=== PATIENT | female | born 1980 | race Caucasian/White ===

== ENCOUNTER 2024-09-11 12:50 | Emergency (ER) | payer OTHER, SELFPAY ==
[2024-09-11 12:55] VITALS: BP 144/93; PULSE 83; TEMP 36.9; O2SAT 95; BMI 32.0
[2024-09-11 13:25] LABS: Influenza Virus A Antigen Negative; Influenza Virus B Antigen Negative; Internal Control Within Normal Limits; SARS-CoV-2 Ag NEGATIVE (NEGATIVE)
--- NOTE | 2024-09-11 13:35 | ED.GENADUL1 ---
HPI HPI - General Adult General Chief complaint: Upper Respiratory Infection Stated complaint: SOB DRY COUGH DIARRHEA Time Seen by Provider: 09/11/24 12:59 Source: patient Mode of arrival: walk-in Limitations: no limitations History of Present Illness HPI narrative: Patient comes to the ER with a 2 days history of cough associated with phlegm in addition to generalized body ache and runny nose, the patient has been exposed to her grandkid who has coronavirus Related Data Home Medications ?Medication ?Instructions ?Recorded ?Confirmed losartan 25 mg tablet 25 mg PO DAILY 09/11/24 09/11/24 naproxen 500 mg tablet 500 mg PO BID 09/11/24 09/11/24 sumatriptan succinate 50 mg tablet 50 mg PO Q2H PRN migraine headache 09/11/24 09/11/24 Previous Rx's ?Medication ?Instructions ?Recorded fluticasone propionate 50 1 spray intranasal BID PRN 09/11/24 mcg/actuation nasal congestion #16 grams spray,suspension guaifenesin 600 mg tablet, 600 mg PO BID PRN cough #10 tabs 09/11/24 extended release 12 hr (Mucinex) Allergies Allergy/AdvReac Type Severity Reaction Status Date / Time No Known Drug Allergies Allergy Verified 09/11/24 12:55 Opioid HPI Opioid Management Most Recent Opioid Data: No Data to Display Review of Systems ROS Status of ROS 10 or more systems reviewed and unremarkable except as noted in history and below PFSH PFSH Social History Little interest or pleasure in doing things: not at all Feeling down, depressed, or hopeless: not at all Exam Narrative Exam Narrative: Nurses notes and vital signs reviewed and patient is not hypoxic. General: Well-appearing and in no apparent distress. Skin: Warm, dry, no pallor noted. No rash. Head: Normocephalic, atraumatic. Neck: Supple, non-tender. Eye: Pupils are equal, round and EOMI. No scleral icterus. Ears, Nose, Mouth, and Throat: TM are clear, no nasal mucosal hypertrophy. Oral mucosa is moist, no posterior oropharynx erythema, uvula is mid-line Cardiovascular: Regular Rate and Rhythm without murmur, gallop or rub. Respiratory: No accessory muscle use or respiratory distress. Lungs are clear to auscultation, no wheezing, rales or rhonchi Chest Wall: no tenderness Back: No midline thoracic or lumbar vertebral tenderness. No CVA tenderness Musculoskeletal: normal ROM, no calf or popliteal tenderness, no lower extremity edema/swelling GI: Abdomen is soft, non-distended. Normal bowel sounds. No masses appreciated. No tenderness to palpation. No rebound, guarding, or rigidity noted. Neurological: A&O x4. No cranial nerve dysfunction observed. No truncal ataxia. Moves all extremities. Sensation intact. Psychiatric: Cooperative and interactive. Normal mood and affect. Constitutional Vital Signs, click to edit/add: Last Vital Signs Temp 98.4 F 09/11/24 12:55 Pulse 83 09/11/24 12:55 Resp 20 09/11/24 12:55 BP 144/93 H 09/11/24 12:55 Pulse Ox 95 09/11/24 12:55 Course Vital Signs Vital signs: Vital Signs Temperature 98.4 F 09/11/24 12:55 Pulse Rate 83 09/11/24 12:55 Respiratory Rate 20 09/11/24 12:55 Blood Pressure 144/93 H 09/11/24 12:55 Pulse Oximetry 95 09/11/24 12:55 Temperature 98.4 F 09/11/24 12:55 Pulse Rate 83 09/11/24 12:55 Respiratory Rate 20 09/11/24 12:55 Blood Pressure 144/93 H 09/11/24 12:55 Pulse Oximetry 95 09/11/24 12:55 Medical Decision Making [facility] Narrative Medical decision making narrative: The COVID and flu test are negative The patient chest x-ray showed no acute pathology The patient right now is mostly presenting with viral illness she was discharged home with supportive care Mucinex and Flonase Patient was instructed about monitoring his symptoms case of any worsening she is to come back to the ER Patient is a smoker of cigarettes less than 1 pack/day The patient is to follow up with primary care physician in next 2-3 days or to return to the emergency department should any of the signs or symptoms worsen or new symptoms develop. The patient agrees with the following Diagnosis and Treatment plan and the patient will be discharged home. Lab Data Labs: Lab Results 09/11/24 Range/Units 12:56 Influenza Type A Ag Negative Influenza Type B Ag Negative SARS-CoV-2 Ag (CV2AG) Negative (NEGATIVE) Discharge Plan Discharge Chief Complaint: Upper Respiratory Infection Clinical Impression: Upper respiratory infection, Bronchitis Patient Disposition: Home, Self-Care Time of Disposition Decision: 13:36 Condition: Good Prescriptions / Home Meds: New guaifenesin [Mucinex] 600 mg tablet extended release 12hr 600 mg PO BID PRN (Reason: cough) Qty: 10 0RF fluticasone propionate 50 mcg/actuation spray,suspension 1 spray intranasal BID PRN (Reason: congestion) Qty: 16 0RF Rx Instructions: administer into each nostril No Action naproxen 500 mg tablet 500 mg PO BID losartan 25 mg tablet 25 mg PO DAILY sumatriptan succinate 50 mg tablet 50 mg PO Q2H PRN (Reason: migraine headache) Print Language: [place] Instructions: Acute Bronchitis (ED), Viral Syndrome (ED) Referrals: Physician,Non-Staff, MD [Primary Care Provider] - 1 week
== END 2024-09-11 13:49 | disposition home or self-care (01) ==
PROVIDERS: Emergency Provider Emergency Medicine
DX: J06.9 Acute upper respiratory infection, unspecified (principal); J40 Bronchitis, not specified as acute or chronic; F17.210 Nicotine dependence, cigarettes, uncomplicated
CPT/HCPCS: 71045; 87804; 87811; 99284